=== PATIENT | male | born 1980 | race Caucasian/White ===

== ENCOUNTER 2017-03-20 11:24 | Inpatient (IN) | payer BC ==
[~2017-03-20] VITALS: Ht 180.3 cm; Wt 88.5 kg
[2017-03-20 11:31] VITALS: BP_SYST 154
[2017-03-20] MEDS ORDERED: MORPHINE 4 MG/ML INJ. SYRINGE IVP ONE (12:15)
[2017-03-20 13:24] LABS: BASOPHILS % (AUTO) 0.5 % (0.0-2.0); EOSINOPHILS # (AUTO) 0.1 K/uL (0.0-0.4); EOSINOPHILS % (AUTO) 1.8 % (0.0-4.0); HEMATOCRIT 42.9 % (36-54); HEMOGLOBIN 14.2 g/dL (14.0-18.0); LYMPHOCYTES # (AUTO) 1.8 K/uL (1.0-5.5); LYMPHOCYTES % (AUTO) 22.2 % (20.5-51.5); MEAN CORPUSCULAR HEMOGLOBIN 28 pg (27-31); MEAN CORPUSCULAR HGB CONC 33 % (32-36); MEAN CORPUSCULAR VOLUME 86 fL (79.0-98.0); MONOCYTES # (AUTO) 0.4 K/uL (0.0-1.0); MONOCYTES % (AUTO) 4.9 % (1.7-9.3); NEUTROPHILS # (AUTO) 5.8 K/uL (1.8-7.7); NEUTROPHILS % (AUTO) 70.6 % (40.0-70.0); PLATELET COUNT (AUTO) 270 K/uL (130-430); RED BLOOD CELL COUNT(AUTO) 5.01 MIL/uL (4.2-6.2); RED CELL DISTRIBUTION WIDTH 11.9 % (9.0-15.0); WHITE BLOOD COUNT (AUTO) 8.1 K/uL (4.8-10.8)
[2017-03-20 13:32] LABS: CALCIUM 9.4 mg/dL (8.4-11.0); CREATININE 1.08 mg/dL (0.55-1.30)
[2017-03-20 13:37] LABS: ALBUMIN 3.6 g/dL (3.4-4.8); TOTAL BILIRUBIN 0.3 mg/dL (0.0-1.0)
[2017-03-20] MEDS ORDERED: HYDROmorphone 1 MG INJ. 1 MG/ML AMPUL IVP ONE (14:30)
[2017-03-20 17:56] VITALS: BP_SYST 132
[2017-03-20] MEDS: D5NS 1,000 ML IV SCH (19:26)
[2017-03-20] MEDS: HYDROmorphone 1 MG INJ. 1 MG/ML AMPUL IVP PRN (19:28)
[2017-03-21] VITALS (7 sets, daily range): BP systolic 116–136
[2017-03-21] MEDS: HYDROmorphone 1 MG INJ. 1 MG/ML AMPUL IVP PRN ×4 (00:06→12:43)
[2017-03-21] MEDS: D5NS 1,000 ML IV SCH ×2 (04:31→17:46)
[2017-03-21 06:28] LABS: BASOPHILS # (AUTO) 0.1 K/uL (0.0-0.2); BASOPHILS % (AUTO) 0.8 % (0.0-2.0); EOSINOPHILS # (AUTO) 0.3 K/uL (0.0-0.4); EOSINOPHILS % (AUTO) 3.7 % (0.0-4.0); HEMATOCRIT 41.1 % (36-54); HEMOGLOBIN 13.6 g/dL (14.0-18.0); LYMPHOCYTES # (AUTO) 2.2 K/uL (1.0-5.5); LYMPHOCYTES % (AUTO) 29.9 % (20.5-51.5); MEAN CORPUSCULAR HEMOGLOBIN 29 pg (27-31); MEAN CORPUSCULAR HGB CONC 33 % (32-36); MEAN CORPUSCULAR VOLUME 87 fL (79.0-98.0); MONOCYTES # (AUTO) 0.5 K/uL (0.0-1.0); MONOCYTES % (AUTO) 7.5 % (1.7-9.3); NEUTROPHILS # (AUTO) 4.1 K/uL (1.8-7.7); NEUTROPHILS % (AUTO) 58.1 % (40.0-70.0); PLATELET COUNT (AUTO) 280 K/uL (130-430); RED BLOOD CELL COUNT(AUTO) 4.73 MIL/uL (4.2-6.2); RED CELL DISTRIBUTION WIDTH 12.1 % (9.0-15.0); WHITE BLOOD COUNT (AUTO) 7.2 K/uL (4.8-10.8)
[2017-03-21 07:04] LABS: ALBUMIN 3.3 g/dL (3.4-4.8); CALCIUM 9.2 mg/dL (8.4-11.0); CREATININE 0.95 mg/dL (0.55-1.30); POTASSIUM 3.8 mmol/L (3.5-5.1); TOTAL BILIRUBIN 0.5 mg/dL (0.0-1.0)
[2017-03-21] MEDS: ENOXAPARIN SODIUM 40 MG/0.4 ML SYRINGE SUBCUT SCH ×2 (08:35→08:38)
[2017-03-21] MEDS ORDERED: ACETAMINOPHEN 500 MG TABLET PO PRN (13:30)
[2017-03-21] MEDS ORDERED: COMMUNICATION ORDER XX ONE (14:15)
[2017-03-21] MEDS ORDERED: HYDROMORPHONE IVP SCH ×2 (14:45→17:15)
[2017-03-21] MEDS ORDERED: D5W IVP SCH ×2 (14:45→17:15)
[2017-03-21] MEDS: IBUPROFEN 600 MG TABLET PO PRN ×2 (16:11→23:28)
[2017-03-21] MEDS: NITROGLYCERIN 1 INCH (GM) OINT. TP SCH (18:00)
[2017-03-22] MEDS ORDERED: DIPHENHYDRAMINE HCL 25 MG CAPSULE PO ONE (00:15)
[2017-03-22 04:54] VITALS: BP_SYST 113
[2017-03-22] MEDS: NITROGLYCERIN 1 INCH (GM) OINT. TP SCH ×4 (06:00→17:39)
[2017-03-22] MEDS: IBUPROFEN 600 MG TABLET PO PRN (06:28)
[2017-03-22] MEDS: D5NS 1,000 ML IV SCH (06:28)
[2017-03-22 06:32] LABS: BASOPHILS % (AUTO) 0.6 % (0.0-2.0); EOSINOPHILS # (AUTO) 0.3 K/uL (0.0-0.4); EOSINOPHILS % (AUTO) 4.2 % (0.0-4.0); HEMATOCRIT 40.8 % (36-54); HEMOGLOBIN 13.4 g/dL (14.0-18.0); LYMPHOCYTES # (AUTO) 2.2 K/uL (1.0-5.5); LYMPHOCYTES % (AUTO) 32.2 % (20.5-51.5); MEAN CORPUSCULAR HEMOGLOBIN 28 pg (27-31); MEAN CORPUSCULAR HGB CONC 33 % (32-36); MEAN CORPUSCULAR VOLUME 86 fL (79.0-98.0); MONOCYTES # (AUTO) 0.6 K/uL (0.0-1.0); MONOCYTES % (AUTO) 8.2 % (1.7-9.3); NEUTROPHILS # (AUTO) 3.7 K/uL (1.8-7.7); NEUTROPHILS % (AUTO) 54.8 % (40.0-70.0); PLATELET COUNT (AUTO) 264 K/uL (130-430); RED BLOOD CELL COUNT(AUTO) 4.74 MIL/uL (4.2-6.2); RED CELL DISTRIBUTION WIDTH 12.1 % (9.0-15.0); WHITE BLOOD COUNT (AUTO) 6.8 K/uL (4.8-10.8)
[2017-03-22 06:57] LABS: ALBUMIN 3.2 g/dL (3.4-4.8); POTASSIUM 3.9 mmol/L (3.5-5.1); TOTAL BILIRUBIN 0.3 mg/dL (0.0-1.0)
[2017-03-22 08:55] VITALS: BP_SYST 137
[2017-03-22] MEDS: ENOXAPARIN SODIUM 40 MG/0.4 ML SYRINGE SUBCUT SCH (09:00)
[2017-03-22] MEDS ORDERED: GADOPENTETATE DIMEGLUMINE 15 ML VIAL IV ONE (11:16)
[2017-03-22] MEDS: HYDROmorphone 1 MG INJ. 1 MG/ML AMPUL IVP PRN ×5 (11:46→22:52)
[2017-03-22] MEDS ORDERED: GABAPENTIN 100 MG CAPSULE PO ONE (12:00)
[2017-03-22] MEDS: GABAPENTIN 100 MG CAPSULE PO SCH ×2 (12:00→21:05)
[2017-03-22 12:50] VITALS: BP_SYST 98
[2017-03-22 12:52] VITALS: BP_SYST 121
[2017-03-22] MEDS ORDERED: NA PHOS,M-B/NA PHOS,DI-BA 118 ML (FLEET ENEMA) RC ONE (13:15)
[2017-03-22 16:22] VITALS: BP_SYST 132
[2017-03-22] MEDS ORDERED: LR 1,000 ML IV.SOLN IV ONE (18:25)
[2017-03-22] MEDS ORDERED: PROPOFOL 200MG/ 20ML VIAL (DIPRIVAN) IV ONE (18:25)
[2017-03-22] MEDS ORDERED: CEFAZOLIN 1 GM IVPB PREMIX 50 ML IV ONE (18:25)
[2017-03-22] MEDS ORDERED: fentaNYL CITRATE/PF 100 MCG/2 ML AMP IVP ONE (18:25)
[2017-03-22] MEDS ORDERED: ONDANSETRON HCL 4 MG/2 ML VIAL IVP ONE (18:25)
[2017-03-22] MEDS ORDERED: KETOROLAC TROMETHAMINE 30 MG VIAL IVP ONE (18:25)
[2017-03-22] MEDS ORDERED: NS IRRIG SOLN 1000 ML IR ONE (18:25)
[2017-03-22] MEDS ORDERED: MIDAZOLAM HCL 5 MG/5 ML VIAL IVP ONE (18:25)
[2017-03-22] MEDS ORDERED: SEVOFLURANE 15 MIN GAS INH ONE (18:25)
[2017-03-22] MEDS ORDERED: LR 1,000 ML IV SCH (18:46)
[2017-03-22 18:52] VITALS: BP_SYST 132
[2017-03-22] MEDS ORDERED: MEPERIDINE HCL/PF 25 MG/ML DISP.SYRIN IVP PRN ×2 (19:00)
[2017-03-22] MEDS ORDERED: HYDROmorphone 1 MG INJ. 1 MG/ML AMPUL IVP PRN (19:00)
[2017-03-22] MEDS ORDERED: ONDANSETRON HCL 4 MG/2 ML VIAL IVP PRN (19:00)
[2017-03-22] MEDS ORDERED: HYDROmorphone 2 MG/ML VIAL IVP PRN ×2 (19:00)
[2017-03-22] MEDS ORDERED: HYDROcodone/ACETAMIN 5-325 MG TAB (NORCO/ VICODIN) PO PRN (19:30)
[2017-03-22] MEDS: HYDROcodone/ACETAMIN 5-325 MG TAB (NORCO/ VICODIN) PO PRN (23:36)
[2017-03-23] VITALS (8 sets, daily range): BP systolic 71–136
[2017-03-23] MEDS: D5/0.45 NS 1,000 ML IV SCH ×3 (00:25→16:09)
[2017-03-23] MEDS: HYDROmorphone 1 MG INJ. 1 MG/ML AMPUL IVP PRN ×9 (00:26→17:18)
[2017-03-23] MEDS: HYDROcodone/ACETAMIN 5-325 MG TAB (NORCO/ VICODIN) PO PRN ×3 (04:58→12:19)
[2017-03-23] MEDS: NITROGLYCERIN 1 INCH (GM) OINT. TP SCH ×4 (06:00→17:18)
[2017-03-23] MEDS: ENOXAPARIN SODIUM 40 MG/0.4 ML SYRINGE SUBCUT SCH (08:39)
[2017-03-23] MEDS: GABAPENTIN 100 MG CAPSULE PO SCH (08:39)
== END 2017-03-23 18:20 | disposition home or self-care (01) | DRG 395 ==
LOC: SED 11:24 → SMU 15:06 → STU 03-21 15:00 → SMU 03-22 13:21
PROVIDERS: ADMIT Internal Medicine; ATTEND Internal Medicine
PROC: 0H89XZZ Division of Perineum Skin, External Approach (ICD-10-PCS; principal; 2017-03-22 15:00)
DX: K61.3 Ischiorectal abscess (principal); F90.9 Attention-deficit hyperactivity disorder, unspecified type; K62.89 Other specified diseases of anus and rectum
CPT/HCPCS: 36415; 72197; 80053; 85025; 94760; 96374; 96375; 99285; A9579; G0480; J0690; J1170; J1650; J1885; J2250; J2270; J2405; J2704; J3010; J7042; J7060; J7120; Q0163